=== PATIENT | female | born 1945 | race Caucasian/White ===

== ENCOUNTER → 2017-05-03 | Outpatient (CLI) | payer MEDICARE, OTHER ==
[~2017-05-03] MED LIST: ALEN70TA5 PO; AZAT50TA9 PO; BENZ200C48 PO; CARV12.543 PO; CARV3.1212 PO; FLUT1POW2 NAS; FURO-92 PO; FURO-93 PO; GLIP10TA13 PO; HYDR-3241 PO; INSU100V8 SQ; LACT20SO13 PO; LEVO150T5 PO; LOSA50TA6 PO; OXYC5TAB3 PO; PANT40TA3 PO; SPIR100T2 PO; SPIR25TA PO
== END | disposition home or self-care (01) ==
LOC: CFH 09:49
PROVIDERS: ATTEND Internal Medicine Gastroenterology
DX: K74.69 Other cirrhosis of liver (principal); Z90.49 Acquired absence of other specified parts of digestive tract
CPT/HCPCS: 76705

== ENCOUNTER → 2017-06-20 | Outpatient (CLI) | payer MEDICARE, OTHER | END | disposition home or self-care (01) | LOC: CVU 11:45 | PROVIDERS: ATTEND Internal Medicine Cardiovascular Disease | DX: I08.0 Rheumatic disorders of both mitral and aortic valves (principal); I11.9 Hypertensive heart disease without heart failure; I42.9 Cardiomyopathy, unspecified; I48.91 Unspecified atrial fibrillation; I44.7 Left bundle-branch block, unspecified; E11.9 Type 2 diabetes mellitus without complications; R60.0 Localized edema | CPT/HCPCS: 93306; 93970 ==

== ENCOUNTER → 2017-11-14 | Outpatient (CLI) | payer MEDICARE, OTHER ==
[~2017-11-14] MED LIST changes: +GADOBUTROL 10 MMOL/10 ML PFS ONE
== END | disposition home or self-care (01) ==
LOC: CFH 12:50
PROVIDERS: ATTEND Internal Medicine Gastroenterology
DX: K74.60 Unspecified cirrhosis of liver (principal); R59.0 Localized enlarged lymph nodes; I85.00 Esophageal varices without bleeding; K75.4 Autoimmune hepatitis
CPT/HCPCS: 74183; A9585

== ENCOUNTER → 2018-04-24 | Outpatient (CLI) | payer MEDICARE, OTHER ==
[~2018-04-24] MED LIST changes: -GADOBUTROL 10 MMOL/10 ML PFS ONE; -SPIR100T2 PO; +SPIR100T4 PO
== END | disposition home or self-care (01) ==
LOC: CARD 11:24
PROVIDERS: ATTEND Internal Medicine
DX: J90 Pleural effusion, not elsewhere classified (principal); I51.7 Cardiomegaly; I50.9 Heart failure, unspecified; E11.9 Type 2 diabetes mellitus without complications
CPT/HCPCS: 71046; 94060; 94726; 94729

== ENCOUNTER → 2018-04-30 | Outpatient (CLI) | payer MEDICARE, OTHER | END | disposition home or self-care (01) | LOC: RAD 07:38 | PROVIDERS: ATTEND Internal Medicine Cardiovascular Disease | DX: K74.60 Unspecified cirrhosis of liver (principal); R59.0 Localized enlarged lymph nodes; I08.3 Combined rheumatic disorders of mitral, aortic and tricuspid valves; Z90.49 Acquired absence of other specified parts of digestive tract; I10 Essential (primary) hypertension; E11.9 Type 2 diabetes mellitus without complications | CPT/HCPCS: 71250; 76705; 93306 ==

== ENCOUNTER → 2018-11-28 | Outpatient (CLI) | payer MEDICARE, OTHER ==
[~2018-11-28] MED LIST changes: -ALEN70TA5 PO; +ALEN70TA6 PO; +LOSA50TA14 PO; -LOSA50TA6 PO
== END | disposition home or self-care (01) ==
LOC: CFH 10:31
PROVIDERS: ATTEND Internal Medicine Gastroenterology
DX: K74.60 Unspecified cirrhosis of liver (principal); Z90.49 Acquired absence of other specified parts of digestive tract
CPT/HCPCS: 76705

== ENCOUNTER → 2018-12-27 | Outpatient (CLI) | payer MEDICARE, OTHER | END | disposition home or self-care (01) | LOC: CFH 11:28 | PROVIDERS: ATTEND Family Medicine | DX: J81.1 Chronic pulmonary edema (principal); J90 Pleural effusion, not elsewhere classified; I51.7 Cardiomegaly | CPT/HCPCS: 71046 ==